=== PATIENT | female | born 2005 | race Caucasian/White ===

== ENCOUNTER 2023-04-04 13:55 | Inpatient (IN) ==
[2023-04-04] MEDS ORDERED: ONDANSETRON INJ 2 MG/ML 2 ML VIAL IV STA ×2 (14:07→19:48)
--- NOTE | 2023-04-04 14:13 | Emergency Department Note ---
Impression & Plan Pyelonephritis, UTI (urinary tract infection), Leukocytosis, Tachycardia ED Provider Note NAME: JOSE ELIAS MOREJON AGE: 17 SEX: F : 2005 ARRIVES VIA: Walk-In INFORMANT: Patient ED PROVIDER(S): Terrence Jane DO CHIEF COMPLAINT: Abdominal pain HPI: Patient is a 17-year-old female who presents the ER for abdominal pain. Started on Sunday with bilateral lower abdominal pain but it is just focal in the right lower quadrant now. Associate with nausea but no vomiting. Pain is worse with twisting, turning, and bending. Pain is also in the lower back. Patient was seen and evaluated by [facility]. Patient was referred over for possible appendicitis denies any headache or change in vision. No dysuria urgency or frequency. Last menstrual period was at the end of February. Denies any vaginal bleeding or vaginal discharge. No previous abdominal surgeries. Was seen and evaluated. External notes reviewed and they recommended transfer to the ER for possible appendicitis but Dr. Carbajal ADDITIONAL HISTORY OBTAINED: Per HPI Chronic Medical/Social Conditions Affecting Care: Per HPI PAST MEDICAL HISTORY:See Below PAST SURGICAL HISTORY:See Below FAMILY HISTORY:See Below SOCIAL HISTORY:See Below HOME MEDICATIONS:See Below ALLERGIES:See Below VITALS:See Below PHYSICAL EXAMINATION: GENERAL: Sitting up in bed, alert, well appearing, well nourished, no distress, non-toxic EYE EXAM: normal conjunctiva. OROPHARYNX: no exudate, no erythema, lips, buccal mucosa, and tongue normal and mucous membranes are moist NECK: supple, no nuchal rigidity, no adenopathy, non-tender LUNGS: Clear to auscultation. Normal chest wall mechanics HEART: no murmurs, S1 normal and S2 normal ABDOMEN: abdomen soft, non-tender, TTP in RLQ, normo-active bowel sounds, no masses, no rebound or guarding. UPPER EXTREMITIES: upper extremities are grossly normal. LOWER EXTREMITIES: No pitting edema. NEURO EXAM: Normal sensorium, cranial nerves II-XII grossly intact, normal speech, no gross weakness of arms, no gross weakness of legs. MEDICAL DECISION MAKING: Patient is a 17-year-old female who presents ER for right lower quadrant abdominal pain sent in by [facility] for possible appendicitis. External records were reviewed. Labs show leukocytosis of 15.6 thousand. No significant anemia. Heart rate was elevated in the 140s. Trended down with fluids to the low 100s. BMP along with LFT was unremarkable. Lipase was normal. UA was contaminated but with CT findings suggestive of pyelonephritis patient was given IV Rocephin. She received 2 L IV fluids. Mom was updated bedside. Case was discussed with the hospitalist and patient was admitted for pyelonephritis. Consults/Care Managements Discussions: Per MDM Triage Nursing notes reviewed. Limited review of prior medical records performed Vital Signs: reviewed and remarkable for tachy Differential diagnosis: Differential diagnoses includes but is not limited to gastritis, peptic ulcer disease, GERD, gallbladder disease, pancreatitis, small bowel obstruction, appendicitis, diverticulitis, hernia, urinary tract infection, torsion, /ectopic (if female), perforation, trauma, infectious. ER treatment provided: See below Diagnostics interpreted by me include EKG and cardiac monitoring as listed below: -Cardiac Monitoring: An order was placed for continuous cardiac monitoring. The monitor shows a rate of 110 with sinus rhythm. -ECG: none -Laboratory studies:Interpreted by me as stated above in MDM and shown below. Imaging studies: Xrays: As interpreted by me:none CTs show: CT abdomen pelvis per my preliminary interpretation shows no bowel obstruction CT abdomen pelvis per radiology showed pyelonephritis Procedures:none Critical Care: None Past Med/Surg History Medical History (Updated 04/04/23 @ 19:57 by Terrence Jane DO) Anxiety and depression No pertinent family history Social History Smoking Status: Never smoker Preferred Language: Greek Feels Safe at Home: Yes Allergies Allergies Allergy/AdvReac Type Severity Reaction Status Date / Time No Known Allergies Allergy Verified 04/04/23 16:42 Home Meds Home Medications Medication Instructions Recorded Confirmed fluoxetine 10 mg tablet 30 mg PO HS 04/04/23 04/04/23 Results & Data (ED) Vital Signs Vital Signs - 24 hr 04/04/23 13:58 04/04/23 17:20 04/04/23 17:21 Temperature 36.5 C Temperature Source Temporal Artery Scan Pulse Rate 137 H Pulse Rate [Apical] 104 H Pulse Rate from SpO2 Sensor Respiratory Rate 20 17 Respiratory Effort / Characteristics Non-Labored Spontaneous Respiratory Depth Normal Respiratory Pattern Regular Blood Pressure 122/83 Blood Pressure [Right Arm] 98/63 L Blood Pressure Mean 96 Blood Pressure Mean [Right Arm] 74 Blood Pressure Position Sitting Pulse Oximetry 97 97 98 Oxygen Delivery Method Room Air Room Air Room Air Sepsis New/Unexplained Change in Mental Status No Sepsis Action Taken by Nursing No Action Required 04/04/23 17:21 04/04/23 18:31 Temperature Temperature Source Pulse Rate 112 H Pulse Rate [Apical] Pulse Rate from SpO2 Sensor 114 H Respiratory Rate 21 Respiratory Effort / Characteristics Respiratory Depth Respiratory Pattern Blood Pressure 102/82 Blood Pressure [Right Arm] Blood Pressure Mean 88 Blood Pressure Mean [Right Arm] Blood Pressure Position Pulse Oximetry 98 99 Oxygen Delivery Method Room Air Sepsis New/Unexplained Change in Mental Status Sepsis Action Taken by Nursing Laboratory Data 04/04/23 14:37 04/04/23 14:37 Lab Results 04/04/23 04/04/23 04/04/23 Range/Units 14:20 14:37 14:45 WBC 15.66 H (4.8-10.8) K/ul RBC 4.81 (4.20-5.40) M/uL Hgb 14.8 (12.0-16.0) g/dl Hct 43.3 (37.0-47.0) % MCV 90.0 (80.0-100.0) fL MCH 30.8 (25.0-34.0) pg MCHC 34.2 (32.0-36.0) g/dL RDW Std Deviation 37.7 (36.4-46.3) fL RDW Coeff of Larry 11.5 (11.5-14.5) % Plt Count 240 (130-400) K/uL MPV 10.2 (9.4-12.4) fL Immature Gran % (Auto) 0.8 % Neut % (Auto) 86.8 % Lymph % (Auto) 4.3 % [place] % (Auto) 7.9 % Eos % (Auto) 0.0 % Baso % (Auto) 0.2 % Neut # (Auto) 13.60 H (1.40-6.50) K/uL Lymph # (Auto) 0.68 L (1.20-3.40) K/uL [place] # (Auto) 1.23 H (0.11-0.59) K/uL Eos # (Auto) 0.00 (0.00-0.50) K/uL Baso # (Auto) 0.03 (0.00-0.20) K/uL Immature Gran # (Auto) 0.12 (0.01-0.20) K/uL Sodium 136 (136-145) mmol/L Potassium 3.5 (3.5-5.1) mmol/L Chloride 98 (98-107) mmol/L Carbon Dioxide 27 (21-32) mmol/L Anion Gap 11 (3-11) BUN 8 (6-23) mg/dl Creatinine 0.69 (0.6-1.2) mg/dl Est Cr Clr Drug Dosing 103.7 ml/min Est GFR ( Amer) 146.3 ml/min Est GFR (Non-Af Amer) 126.2 ml/min BUN/Creatinine Ratio 11.6 (10-20) Glucose 93 (70-99(Fasting)) mg/dl Calcium 10.2 (8.6-10.3) mg/dl Total Bilirubin 1.6 H (0.2-1.0) mg/dl AST 14 (13-39) U/L ALT 9 (7-52) U/L Alkaline Phosphatase 72 (34-104) U/L Total Protein 9.0 H (6.0-8.3) gm/dl Albumin 5.2 H (3.4-5.0) gm/dl Globulin 3.8 (2.5-4.0) gm/dl Albumin/Globulin Ratio 1.4 (0.9-2) Lipase 7 L (11-82) U/L Urine Color [place] Urine Appearance Cloudy A (Clear) Urine pH 5.5 (4.5-7.5) Ur Specific [place] 1.020 (1.000-1.030) Urine Protein 3+ H (Negative) Urine Glucose (UA) Negative (Negative) Urine Ketones 4+ H (Negative) Urine Blood 1+ H (Negative) Urine Nitrite Positive A (Negative) Urine Bilirubin 1+ H (Negative) Urine Urobilinogen Negative (Negative) Ur Leukocyte Esterase 2+ H (Negative) Urine WBC (Auto) >30 H (0-5) /hpf Urine RBC (Auto) 10-30 H (0-4) /hpf U Hyaline Cast (Auto) 5-10 H (0-5) /lpf U Epithel Cells (Auto) >30 H (0-5) /lpf Urine Bacteria (Auto) 1+ H (Negative) POC Ur Test NEG (NEG) Administered Medications Discontinued Medications Sodium Chloride (Nss) 1,000 mls @ 999 mls/hr IV .Q1H1M RUTH Stop: 04/04/23 16:15 Last Infusion: 04/04/23 17:22 Dose: Infused Documented By: Admin: 04/04/23 16:07 Dose: 999 mls/hr Documented By: Infusion: 04/04/23 16:07 Dose: Infused Documented By: Admin: 04/04/23 15:29 Dose: 999 mls/hr Documented By: NRB Ceftriaxone Sodium (Rocephin) 2,000 mg in 50 mls @ 100 mls/hr IV NOW STA Stop: 04/04/23 17:36 Last Infusion: 04/04/23 17:47 Dose: Infused Documented By: Admin: 04/04/23 17:13 Dose: 100 mls/hr Documented By: ML Sodium Chloride (Nss) 1,000 mls @ 999 mls/hr IV .Q1H1M ONE Stop: 04/04/23 18:07 Last Infusion: 04/04/23 18:38 Dose: Infused Documented By: Admin: 04/04/23 17:20 Dose: 999 mls/hr Documented By: ML Ioversol (Optiray 320 500ml) 87 ml IV ONCE ONE Stop: 04/04/23 16:11 Last Admin: 04/04/23 16:11 Dose: 87 ml Documented By: KSF Ketorolac Tromethamine (Ketorolac Tromethamine 15 Mg/Ml Vial) 15 mg IV NOW ONE Stop: 04/04/23 17:08 Last Admin: 04/04/23 17:13 Dose: 15 mg Documented By: ML Ondansetron HCl (Ondansetron Inj 2 Mg/Ml 2 Ml Vial) 4 mg IV NOW STA Stop: 04/04/23 14:08 Last Admin: 04/04/23 15:27 Dose: 4 mg Documented By: NRB Imaging Data Radiologist's Impression: Abdomen/Pelvis CT 04/04/23 15:57 CT OF THE ABDOMEN AND PELVIS WITH CONTRAST CLINICAL HISTORY: Right lower quadrant abdominal pain. COMPARISON STUDY: None. TECHNIQUE: Following IV administration of 87 mL of Optiray, axial images of the abdomen and pelvis were obtained from the lung bases to the proximal femurs. Images were reviewed in the axial, sagittal, and coronal planes. IV contrast was administered without complication. Automated exposure control was utilized for the study. A dose lowering technique was utilized adhering to the principles of ALARA. CT DOSE: 508.74 mGy.cm FINDINGS: Lung bases are unremarkable. No pneumatosis, free air or portal venous gas is present. Liver, spleen, adrenal glands, left kidney and pancreas are normal. 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 There is heterogeneous enhancement of the right kidney, including a 2.6 cm hypoenhancing focus within the upper pole. There is right perinephric stranding and fluid. There is urothelial thickening of the right ureter. There are no ureteral calculi. There is no hydronephrosis. No renal abscess. The appendix is mildly dilated and fluid-filled, measuring 7 mm in caliber. However, there is no periappendiceal infiltration. Trace ascites within the pelvis is noted. There is a dominant follicle within the right ovary. No evidence for a bowel obstruction. Major vasculature is patent. IMPRESSION: 1. Findings consistent with acute right pyelonephritis and pyelitis. No renal abscess. Multiple hypoenhancing foci within the right kidney with right perinephric stranding and fluid. Urothelial thickening of the right ureter. No ureteral calculi. No hydronephrosis. Congenital malrotation of the right kidney. 2. No bowel obstruction. No bowel wall thickening. 3. Mildly dilated fluid-filled appendix. However, no periappendiceal infiltration. The findings do not suggest acute appendicitis. 4. Small amount of fluid within the pelvis. ACT 112: Negative or not required by law. Electronically signed by: Mike David M.D. 04/04/2023 5:00 PM Discharge Plan Visit Data Chief Complaint: Abdominal Pain Stated Complaint: LRQP ED Provider: Terrence Jane Discharge Problem: Pyelonephritis, UTI (urinary tract infection), Leukocytosis, Tachycardia Forms Stand Alone Forms: [place] Prescriptions Prescriptions: No Action fluoxetine [Prozac] 10 mg Tablet 30 mg PO HS Referrals Referrals: PCP,NO [Physician] - Discharge Problem: UTI (urinary tract infection) Qualifiers: Urinary tract infection type: site unspecified Hematuria presence: with hematuria Qualified Code(s): N39.0 - Urinary tract infection, site not specified ; R31.9 - Hematuria, unspecified Leukocytosis Qualifiers: Leukocytosis type: unspecified Qualified Code(s): D72.829 - Elevated white blood cell count, unspecified
[2023-04-04 15:06] LABS: Basophils # (auto) 0.03 K/uL (0.00-0.20); Basophils % (auto) 0.2 %; Hematocrit (blood only) 43.3 % (37.0-47.0); Hemoglobin 14.8 g/dl (12.0-16.0); Immature Granulocytes # (auto) 0.12 K/uL (0.01-0.20); Immature Granulocytes % (auto) 0.8 %; Lymphocytes # (auto) 0.68 K/uL (1.20-3.40); Lymphocytes % (auto) 4.3 %; Mean Corpuscular Hemoglobin 30.8 pg (25.0-34.0); Mean Corpuscular Hgb Conc 34.2 g/dL (32.0-36.0); Mean Platelet Volume 10.2 fL (9.4-12.4); Monocytes # (auto) 1.23 K/uL (0.11-0.59); Monocytes % (auto) 7.9 %; Neutrophils % (auto) 86.8 %; Platelet Count 240 K/uL (130-400); RDW Coefficient of Variation 11.5 % (11.5-14.5); RDW Standard Deviation 37.7 fL (36.4-46.3); Red Blood Count 4.81 M/uL (4.20-5.40); White Blood Count 15.66 K/ul (4.8-10.8)
[2023-04-04 15:21] LABS: Albumin Globulin Ratio 1.4 (0.9-2); Albumin Level 5.2 gm/dl (3.4-5.0); BUN Creatinine Ratio 11.6 (10-20); Bilirubin,Total 1.6 mg/dl (0.2-1.0); Calcium 10.2 mg/dl (8.6-10.3); Creatinine Clr Calc Pharmacy 103.7 ml/min; Est GFR (African American) 146.3 ml/min; Est GFR (Non-African American) 126.2 ml/min; Globulin 3.8 gm/dl (2.5-4.0); Potassium 3.5 mmol/L (3.5-5.1)
[2023-04-04] MEDS: SODIUM CHLORIDE 0.9% 1,000 ML IV SCH ×2 (15:29→16:07)
[2023-04-04] MEDS ORDERED: OPTIRAY 320 500ml IV ONE (16:10)
[2023-04-04 16:12] LABS: Appearance Urine Cloudy (Clear); Bacteria Urine Automated 1+ (Negative); Bilirubin Urine 1+ (Negative); Blood Urine 1+ (Negative); Color Urine Orange; Epithelial Cell Urine Auto >30 /lpf (0-5); Glucose Urine UA Negative (Negative); Ketones Urine 4+ (Negative); Leukocyte Esterase Urine 2+ (Negative); Nitrite Urine Positive (Negative); Protein Urine 3+ (Negative); Urobilinogen Urine Negative (Negative); WBC Urine Automated >30 /hpf (0-5); pH Urine 5.5 (4.5-7.5)
--- NOTE | 2023-04-04 17:01 | CT Scan Report ---
CT OF THE ABDOMEN AND PELVIS WITH CONTRAST CLINICAL HISTORY: Right lower quadrant abdominal pain. COMPARISON STUDY: None. TECHNIQUE: Following IV administration of 87 mL of Optiray, axial images of the abdomen and pelvis we re obtained from the lung bases to the proximal femurs. Images were reviewed in the axial, sagittal, and coronal planes. IV contrast was administered without complication. Automated exposure control wa s utilized for the study. A dose lowering technique was utilized adhering to the principles of ALARA . CT DOSE: 508.74 mGy.cm FINDINGS: Lung bases are unremarkable. No pneumatosis, free air or portal venous gas is present. Live r, spleen, adrenal glands, left kidney and pancreas are normal. Congenital malrotation of the right k idney is incidentally noted. There is heterogeneous enhancement of the right kidney, including a 2.6 cm hypoenhancing focus within the upper pole. There is right perinephric stranding and fluid. There i s urothelial thickening of the right ureter. There are no ureteral calculi. There is no hydronephrosi s. No renal abscess. The appendix is mildly dilated and fluid-filled, measuring 7 mm in caliber. [place] el, there is no periappendiceal infiltration. Trace ascites within the pelvis is noted. There is a d ominant follicle within the right ovary. No evidence for a bowel obstruction. Major vasculature is pa tent. IMPRESSION: 1. Findings consistent with acute right pyelonephritis and pyelitis. No renal abscess. Multiple hypoe nhancing foci within the right kidney with right perinephric stranding and fluid. Urothelial thickeni ng of the right ureter. No ureteral calculi. No hydronephrosis. Congenital malrotation of the right k idney. 2. No bowel obstruction. No bowel wall thickening. 3. Mildly dilated fluid-filled appendix. However, no periappendiceal infiltration. The findings do no t suggest acute appendicitis. 4. Small amount of fluid within the pelvis. ACT 112: Negative or not required by law. Electronically signed by: Mike David M.D. 04/04/2023 5:00 PM
[2023-04-04] MEDS ORDERED: cefTRIAXone SODIUM 2,000 MG/50 ML BAG IV STA (17:07)
[2023-04-04] MEDS ORDERED: SODIUM CHLORIDE 0.9% 1,000 ML IV ONE (17:07)
[2023-04-04] MEDS ORDERED: KETOROLAC TROMETHAMINE 15 MG/ML VIAL IV ONE (17:07)
--- NOTE | 2023-04-04 17:45 | History & Physical Report ---
Date of Service April 04, 2023 Assessment & Plan (1) Sepsis: (2) Pyelonephritis: (3) UTI (urinary tract infection): (4) Leukocytosis: (5) Tachycardia: Plan: - Admit to med surg with tele - Patient has received 3 L of NSS so far, no need for further fluids, allow PO intake and encourage fluids -Tachycardia likely secondary to acute infection and being anxious, improved status post fluid administration, BP stable -WBC 15 K -UA grossly infected, await urine culture sensitivities, blood cultures pending -IV Rocephin, continue -CT abdomen and pelvis reviewed personally showing pyelonephritis, right congenital malrotation of the kidney-can be discussed more so by PCP as an outpatient -Discussion was held with the patient regarding activity and postcoital voiding to avoid UTI, barrier device to prevent STIs and , urine test is negative today -Continue toradol IV and tylenol prn for pain control (6) Anxiety and depression: Plan: -May continue Prozac 30 mg daily -Patient reports Concerta use infrequently, she does not know the dose - ?10 mg -Follows with psychiatry in the [place] area, Dr. Ran MD DVT ppx: teds, scds FEN/GI: Allow regular diet, no further fluids CODE: Full code Lines: 2 PIV Dispo: From home, likely to remain in the hospital x 1-2 days (7) Pyelitis: History of Present Illness Chief Complaint: RLQ pain Primary Care Provider: NO PCP This is a 17-year-old female with PMHx of anxiety on prozac, and reported slower processing speed where she has been prescribedConcerta in low dose for improvement in her ability to focus by psychiatrist. She presents to the hospital with acute onset of right lower quadrant pain and right lower back pain from [facility]. Patient reports that her pain started on Sunday, and that it has progressively worsened in the right lower quadrant so sought out care at [facility] earlier today. She denies changes in oral intake, admits to intermittent nausea and dry heaves with decreased po intake in the past day or so, no vomiting. Patient has had increased urinary frequency earlier this week but thought it was possibly due to trying to increase her fluid intake. She denies dysuria or hematuria. Urine appeared dark yellow this morning, is now running clear status post getting fluids in the ER. She denies being sexually active, test is negative. Pts notes having fever of 100.1 today in the outpatient clinic, she denies taking tylenol/motrin earlier in the week for pain. Patient was found to be tachycardic with a heart rate in the 140s, UA appears grossly infected concerning for infection and was started on IV Rocephin. CT of the abdomen pelvis was obtained to rule out acute appendicitis and shows a right pyelonephritis and pyelitis, right kidney with right perinephritic stranding and fluid, no hydronephrosis, congenital malrotation of the right kidney. Pt follows with psychiatry out of the ID area. Allergies Allergy/AdvReac Type Severity Reaction Status Date / Time No Known Allergies Allergy Verified 04/04/23 16:42 Home Medications Medication Instructions Recorded Confirmed Type fluoxetine 10 mg tablet 30 mg PO HS 04/04/23 04/04/23 History Past Med/Surg History Medical History (Updated 04/04/23 @ 20:55 by Luzmaria Mcnally DO) Anxiety and depression No pertinent family history Surgical History (Updated 04/04/23 @ 20:52 by Luzmaria Mcnally DO) No pertinent past surgical history Social History Smoking Status: Never smoker Preferred Language: Icelandic Feels Safe at Home: Yes Review of Systems Review of Systems: Constitutional: + fever, no sweats and chills Eyes: No diplopia, no worsening or blurred vision ENT: normal hearing, no trouble swallowing Respiratory: No cough, sputum, dyspnea at rest or on exertion Cardiovascular: No chest pain, tightness or palpitations Abdomen: + RLQ and R flank, R lower back pain as per HPI, improved now s/p pain medications. + dry heaves/nausea, no vomiting, diarrhea or constipation Musculoskeletal: No joint pain, calf pain, swelling Neurologic: No weakness, numbness/tingling, or balance problems Psychiatric: Hx of depression, anxiety, difficult focusing at times Skin: No rash or itch Physical Exam Physical Exam: General: awake, alert, no apparent distress, young, white female, Head: Normocephalic, atraumatic ENT: PERRL, EOMI, no pharyngeal exudate, mucous membranes moist Chest: Clear to auscultation, on room air, no adventitious breath sounds Cardiac: + Sinus tachycardia with HF in low 100s at bedside, no murmur, no JVD, normal peripheral pulses, good capillary refill Abdominal: NABS x 4 quadrants, soft, nondistended, nontender to palpation, no rebound or guarding Back: no CVA tenderness Extremities: Normal inspection, no peripheral edema or erythema, calfs nontender to palpation Psych: Normal mood and affect Neuro: AAO x 3, strength intact bilaterally and rated 5/5, no motor deficits, speech is clear, no peripheral sensory deficits Results & Data Results & Data Vital Signs (Past 12 Hours) Vital Signs Temp Pulse Pulse Resp BP BP Pulse Ox 04/04/23 17:21 98 04/04/23 17:21 104 H 17 98/63 L 98 04/04/23 17:20 97 04/04/23 13:58 36.5 C 137 H 20 122/83 97 O2 Del Method 04/04/23 17:21 Room Air 04/04/23 17:21 Room Air 04/04/23 17:20 Room Air 04/04/23 13:58 Room Air Laboratory Results 04/04/23 14:20 Urine Culture - Pending Urine,Clean Catch 04/04/23 04/04/23 04/04/23 14:45 14:37 14:20 WBC 15.66 H RBC 4.81 Hgb 14.8 Hct 43.3 MCV 90.0 MCH 30.8 MCHC 34.2 RDW Std Deviation 37.7 RDW Coeff of Larry 11.5 Plt Count 240 MPV 10.2 Immature Gran % (Auto) 0.8 Neut % (Auto) 86.8 Lymph % (Auto) 4.3 [place] % (Auto) 7.9 Eos % (Auto) 0.0 Baso % (Auto) 0.2 Neut # (Auto) 13.60 H Lymph # (Auto) 0.68 L [place] # (Auto) 1.23 H Eos # (Auto) 0.00 Baso # (Auto) 0.03 Immature Gran # (Auto) 0.12 Sodium 136 Potassium 3.5 Chloride 98 Carbon Dioxide 27 Anion Gap 11 BUN 8 Creatinine 0.69 Est Cr Clr Drug Dosing 103.7 Est GFR ( Amer) 146.3 Est GFR (Non-Af Amer) 126.2 BUN/Creatinine Ratio 11.6 Glucose 93 Calcium 10.2 Total Bilirubin 1.6 H AST 14 ALT 9 Alkaline Phosphatase 72 Total Protein 9.0 H Albumin 5.2 H Globulin 3.8 Albumin/Globulin Ratio 1.4 Lipase 7 L Urine Color [place] Urine Appearance Cloudy A Urine pH 5.5 Ur Specific [place] 1.020 Urine Protein 3+ H Urine Glucose (UA) Negative Urine Ketones 4+ H Urine Blood 1+ H Urine Nitrite Positive A Urine Bilirubin 1+ H Urine Urobilinogen Negative Ur Leukocyte Esterase 2+ H Urine WBC (Auto) >30 H Urine RBC (Auto) 10-30 H U Hyaline Cast (Auto) 5-10 H U Epithel Cells (Auto) >30 H Urine Bacteria (Auto) 1+ H POC Ur Test NEG Diagnostic Findings Abdomen/Pelvis CT 04/04/23 15:57 CT OF THE ABDOMEN AND PELVIS WITH CONTRAST CLINICAL HISTORY: Right lower quadrant abdominal pain. COMPARISON STUDY: None. TECHNIQUE: Following IV administration of 87 mL of Optiray, axial images of the abdomen and pelvis were obtained from the lung bases to the proximal femurs. Images were reviewed in the axial, sagittal, and coronal planes. IV contrast was administered without complication. Automated exposure control was utilized for the study. A dose lowering technique was utilized adhering to the principles of ALARA. CT DOSE: 508.74 mGy.cm FINDINGS: Lung bases are unremarkable. No pneumatosis, free air or portal venous gas is present. Liver, spleen, adrenal glands, left kidney and pancreas are normal. 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 There is heterogeneous enhancement of the right kidney, including a 2.6 cm hypoenhancing focus within the upper pole. There is right perinephric stranding and fluid. There is urothelial thickening of the right ureter. There are no ureteral calculi. There is no hydronephrosis. No renal abscess. The appendix is mildly dilated and fluid-filled, measuring 7 mm in caliber. However, there is no periappendiceal infiltration. Trace ascites within the pelvis is noted. There is a dominant follicle within the right ovary. No evidence for a bowel obstruction. Major vasculature is patent. IMPRESSION: 1. Findings consistent with acute right pyelonephritis and pyelitis. No renal abscess. Multiple hypoenhancing foci within the right kidney with right perinephric stranding and fluid. Urothelial thickening of the right ureter. No ureteral calculi. No hydronephrosis. Congenital malrotation of the right kidney. 2. No bowel obstruction. No bowel wall thickening. 3. Mildly dilated fluid-filled appendix. However, no periappendiceal infiltration. The findings do not suggest acute appendicitis. 4. Small amount of fluid within the pelvis. ACT 112: Negative or not required by law. Electronically signed by: Mike David M.D. 04/04/2023 5:00 PM Code Status & VTE Plan Code Status Full code - discussed with pt at bedside Supervising Physician Co-Signing Physician Notes I have seen and examined the patient and have discussed the case with the provider above. I agree with the assessment and plan as stated. Patient is a 17-year-old female who presents with sepsis secondary to acute right pyelonep hritis and pyelitis with no evidence of renal abscess. She has no evidence of FARTUN or renal obstruction. She is doing well after initial pain medication and reports pain is manageable. Pain is mostly on the right flank. She is afebrile with a persistent elevation in heart rate despite 3 L of fluid. Blood pressure is 102/82. She does report some nauseousness. Mom is at bedside and assist with history. Agree with exam as noted above. Labs reveal white blood cell count of 16,000 with left shift. Chemistry panel otherwise unremarkable. Lipase unremarkable. UA is positive. Cultures pending. CT abdomen pelvis were consistent with acute right pyelonephritis and pyelitis. Agree with plan to continue Rocephin pending culture results and clinical improvement. Continue supportive care options and home medication. DO Uli
[2023-04-04] MEDS ORDERED: KETOROLAC TROMETHAMINE 15 MG/ML VIAL IV PRN (18:24)
[2023-04-04] MEDS ORDERED: ONDANSETRON INJ 2 MG/ML 2 ML VIAL IV PRN (20:00)
[2023-04-04] MEDS ORDERED: ACETAMINOPHEN 325 MG TAB PO PRN (20:00)
[2023-04-04] MEDS: FLUoxetine HCL 10 MG CAP PO SCH (21:37)
[2023-04-05] MEDS ORDERED: hydrOXYzine HCl 10 MG TAB PO STA (02:36)
[2023-04-05] MEDS ORDERED: POTASSIUM CHLORIDE CRTAB 20 MEQ TABCR PO STA (02:36)
[2023-04-05] MEDS ORDERED: NSS + 20MEQ KCL 20 MEQ/1,000 ML BAG IV ONE (02:45)
[2023-04-05 02:55] LABS: Magnesium 1.8 mg/dl (1.7-2.4)
[2023-04-05] MEDS: MAGNESIUM SULFATE / D5W 1 GM/100 ML BAG IV SCH ×2 (04:25→06:12)
[2023-04-05 07:25] LABS: Hematocrit (blood only) 31.4 % (37.0-47.0); Hemoglobin 10.4 g/dl (12.0-16.0); Mean Corpuscular Hemoglobin 30.7 pg (25.0-34.0); Mean Corpuscular Hgb Conc 33.1 g/dL (32.0-36.0); Mean Corpuscular Volume 92.6 fL (80.0-100.0); Mean Platelet Volume 9.9 fL (9.4-12.4); Platelet Count 170 K/uL (130-400); RDW Coefficient of Variation 11.4 % (11.5-14.5); Red Blood Count 3.39 M/uL (4.20-5.40); White Blood Count 11.49 K/ul (4.8-10.8)
[2023-04-05 07:42] LABS: Anion Gap 5 (3-11); BUN Creatinine Ratio 9.1 (10-20); Blood Urea Nitrogen 4 mg/dl (6-23); Calcium 7.9 mg/dl (8.6-10.3); Carbon Dioxide 21 mmol/L (21-32); Chloride 109 mmol/L (98-107); Creatinine Clr Calc Pharmacy 179.5 ml/min; Est GFR (African American) > 150.0 ml/min; Est GFR (Non-African American) 146.3 ml/min; Glucose 113 mg/dl (70-99(Fasting)); Potassium 4.4 mmol/L (3.5-5.1); Sodium 135 mmol/L (136-145)
--- NOTE | 2023-04-05 14:43 | Hospitalist Progress Note ---
Date of Service April 05, 2023 Assessment & Plan (1) Sepsis: (2) Pyelonephritis: (3) Anxiety and depression: Plan Pt is a 17yoF with PMHx significant for anxiety admitted with sepsis in the setting of acute pyelonephritis. Sepsis Acute pyelonephritis Pt presenting with right sided abdominal pain Pt tachycardic and WBC elevated >15K on admission UA suggestive of infection, Urine Cx currently growing E coli CT abd/pelvis noting findings consistent with acute R pyelonephritis and and pyelitis, did not suggest appendicitis Blood Cx x 2 pending Continue IV rocephin, narrow based on culture sensitivities Congenital malrotation of the right kidney Noted incidentally on CT abd/pelvis Consider outpt urology follow up Anxiety Continue home prozac Diet: Regular DVT prophylaxis: ambulation as tolerated CODE STATUS: Full code Dispo: home pending Cx results Admission and Anticipated Discharge Date Admission Date: April 04, 2023 Subjective Pt seen in the AM, mother at bedside. Denied N/V, fevers, chills or night sweats. However stated that she was still having right sided abdominal pain. Tolerating food though she noted that her uneaten breakfast tray was due to her not typically eating so early. Review of Systems Review of Systems: All systems reviewed & are unremarkable except as noted in Subjective Physical Exam Physical Exam: General: Alert, oriented. No acute distress Skin: No noted rashes or bruises Psych: Appropriate mood and affect Neuro: No gross deficits HEENT: NC/AT Chest: Nontender to palpation. CV: RRR Resp: Breath sounds clear bilaterally, no increased effort of breathing. Abdomen: Soft, tender in right quadrants/flank Extremities: No edema in lower extremities bilaterally. Results & Data Results & Data Vital Signs (Past 12 Hours) Vital Signs Temp Pulse Pulse Resp BP BP Pulse Ox 04/05/23 07:38 37.0 C 96 H 16 96/59 L 95 04/05/23 06:00 98 H 04/05/23 02:19 37 C 101 H 20 96/59 L 98 04/04/23 23:15 123 H 04/04/23 22:26 37.5 C 112 H 18 89/53 L 95 04/04/23 21:30 96/45 L 97 O2 Del Method 04/05/23 07:38 Room Air 04/05/23 06:00 04/05/23 02:19 Room Air 04/04/23 23:15 04/04/23 22:26 Room Air 04/04/23 21:30
[2023-04-05] MEDS ORDERED: SODIUM CHLORIDE 0.9% 1,000 ML IV SCH (15:45)
[2023-04-05] MEDS ORDERED: cefTRIAXone SODIUM 1,000 MG in DEXTROSE 5 % MINI-B 50 ML IV SCH (17:00)
[2023-04-05] MEDS: FLUoxetine HCL 10 MG CAP PO SCH (20:18)
[2023-04-06 07:18] LABS: Basophils # (auto) 0.03 K/uL (0.00-0.20); Basophils % (auto) 0.6 %; Eosinophils # (auto) 0.04 K/uL (0.00-0.50); Eosinophils % (auto) 0.8 %; Hematocrit (blood only) 34.2 % (37.0-47.0); Hemoglobin 11.2 g/dl (12.0-16.0); Immature Granulocytes # (auto) 0.02 K/uL (0.01-0.20); Immature Granulocytes % (auto) 0.4 %; Lymphocytes # (auto) 1.14 K/uL (1.20-3.40); Lymphocytes % (auto) 21.5 %; Mean Corpuscular Hemoglobin 30.9 pg (25.0-34.0); Mean Corpuscular Hgb Conc 32.7 g/dL (32.0-36.0); Mean Corpuscular Volume 94.5 fL (80.0-100.0); Monocytes # (auto) 0.79 K/uL (0.11-0.59); Monocytes % (auto) 14.9 %; Neutrophils # (auto) 3.28 K/uL (1.40-6.50); Neutrophils % (auto) 61.8 %; Platelet Count 163 K/uL (130-400); RDW Coefficient of Variation 11.4 % (11.5-14.5); RDW Standard Deviation 39.1 fL (36.4-46.3); Red Blood Count 3.62 M/uL (4.20-5.40)
[2023-04-06 08:00] LABS: Alanine Aminotransferase 31 U/L (7-52); Albumin Globulin Ratio 1.2 (0.9-2); Albumin Level 3.4 gm/dl (3.4-5.0); Alkaline Phosphatase 61 U/L (34-104); Anion Gap 5 (3-11); Aspartate Aminotransferase 31 U/L (13-39); Bilirubin,Total 0.4 mg/dl (0.2-1.0); Blood Urea Nitrogen 4 mg/dl (6-23); Calcium 8.5 mg/dl (8.6-10.3); Carbon Dioxide 25 mmol/L (21-32); Chloride 108 mmol/L (98-107); Creatinine Clr Calc Pharmacy 157.8 ml/min; Est GFR (African American) > 150.0 ml/min; Est GFR (Non-African American) 140.3 ml/min; Globulin 2.8 gm/dl (2.5-4.0); Glucose 93 mg/dl (70-99(Fasting)); Phosphorus 3.7 mg/dl (2.5-4.9); Sodium 138 mmol/L (136-145); Total Protein 6.2 gm/dl (6.0-8.3)
--- NOTE | 2023-04-06 11:06 | Discharge Summary ---
Discharge Summary Date of Service April 06, 2023 Notes For Next Care Provider Pt found to have a congenital malrotation of affected kidney, may consider possible urology followup Medication Changes From Visit ciprofloxacin Admission HPI Per Admitting Provider This is a 17-year-old female with PMHx of anxiety on prozac, and reported slower processing speed where she has been prescribedConcerta in low dose for improvement in her ability to focus by psychiatrist. She presents to the hospital with acute onset of right lower quadrant pain and right lower back pain from [facility]. Patient reports that her pain started on Sunday, and that it has progressively worsened in the right lower quadrant so sought out care at [facility] earlier today. She denies changes in oral intake, admits to intermittent nausea and dry heaves with decreased po intake in the past day or so, no vomiting. Patient has had increased urinary frequency earlier this week but thought it was possibly due to trying to increase her fluid intake. She denies dysuria or hematuria. Urine appeared dark yellow this morning, is now running clear status post getting fluids in the ER. She denies being sexually active, test is negative. Pts notes having fever of 100.1 today in the outpatient clinic, she denies taking tylenol/motrin earlier in the week for pain. Patient was found to be tachycardic with a heart rate in the 140s, UA appears grossly infected concerning for infection and was started on IV Rocephin. CT of the abdomen pelvis was obtained to rule out acute appendicitis and shows a right pyelonephritis and pyelitis, right kidney with right perinephritic stranding and fluid, no hydronephrosis, congenital malrotation of the right kidney. Pt follows with psychiatry out of the [place] area. Principal Dx & Hospital Course #1 = Principal Diagnosis (1) Sepsis: (2) Pyelonephritis: (3) Anxiety and depression: Plan The patient is a 17-year-old otherwise healthy female presenting with sepsis secondary to pyelonephritis and pyelitis of the right kidney. Blood cultures were negative for bacteremia and her urine culture revealed E. coli with resistance to ampicillin. Initially her white blood cell count was 15.66 and this improved to 5.3 at day of discharge. She developed a mild anemia likely secondary to hydration with an H&H on admission of 14.8/43.3 ending up at 11.2/34.2 at time of discharge. She was clinically improved with resolution of flank pain. She was hemodynamically stable and afebrile and oxygenating well on room air. She was mentating and ambulating at baseline and tolerating p.o. Mom was at bedside and we did discuss the possibility of following up with a urologist nonurgently regarding her finding of congenital malrotation of the right kidney. Given she has normal renal function and is urinating without issue this may not even need to take place. Counseled to follow-up with her primary care doctor for further guidance on this. Discharged home in stable condition. Discharge Exam CONSTITUTIONAL: WNWD, vitals as above, generally well-appearing EYES: normal conjunctivae, no scleral icterus ENT: external ear and nose normal, MMM NECK: trachea midline RESPIRATORY: clear to auscultation bilaterally, no crackles, rales or wheezes, normal respiratory effort CARDIOVASCULAR: regular rate and rhythm, S1 and 2 heard without murmurs, garzon ps or rubs, no JVD, no peripheral edema, no carotid bruits CHEST: inspection of chest was normal GASTROINTESTINAL: normal bowel sounds, soft, nontender, ND, no CVA tenderness MUSCULOSKELETAL: strength 5/5 throughout, head is normocephalic and atraumatic SKIN: warm and dry NEUROLOGIC: CN 2-12 grossly intact, no sensory deficit, normal cognition, normal speech, no tremor PSYCHIATRIC: alert cooperative and oriented to person, place and time. Updated Medication List Medication Instructions Recorded Confirmed Type fluoxetine 10 mg tablet 30 mg PO HS 04/04/23 04/04/23 History ciprofloxacin HCl 500 mg tablet 500 mg PO Q12H #16 tabs 04/06/23 Rx Hospital Stay Data Consultations 04/04/23 17:34 ED Decision to Admit Stat Diagnostic Imagining Performed 04/04/23 15:57 CT abd pelvis IV con only Stat Pending Results Patient Have Any Pending Studies at Discharge: No Discharge Instructions Given to Patient (Per Discharging Provider) Efe, You were admitted because you had a severe infection in your right kidney which came from a bladder infection. We treated you with IV antibiotics and we are discharging you home with an oral form. Please take as prescribed. Please also keep follow up with your primary care provider after discharge. It was a pleasure taking care of you while you were here. It was a pleasure taking care of you! Please call if you have any questions or problems. You can reach a [facility] Hospitalist on duty at [facility] 24 hours a day by calling [phone]. Take care of yourself. Luzmaria Mcnally, [facility] Total Time Total Time Spent Total Time Spent (In Minutes): 60
== END 2023-04-06 11:07 | disposition home or self-care (01) | DRG 872 ==
LOC: ED 13:55 → SUATTDRO 17:50 → EDINP 17:50 → 2N 20:01